=== PATIENT | male | born 1995 | race Caucasian/White ===

== ENCOUNTER 2017-11-26 01:45 | Emergency (ER) | payer SELFPAY ==
[~2017-11-26] VITALS: Ht 165.1 cm; Wt 54.0 kg
[2017-11-26] MEDS ORDERED: LORAZEPAM 2MG/ML CPJ IM PRN (02:00)
[2017-11-26] MEDS ORDERED: LEVETIRACETAM 500MG PREMIX 100 ML IV ONE (02:00)
[2017-11-26 02:22] LABS: BASOPHILS % 0.6 % (0.0-2.0); EOSINOPHILS % 2.6 % (0.0-5.0); HEMATOCRIT. 41.7 % (42.0-52.0); HEMOGLOBIN. 14.5 g/dL (14.0-18.0); LYMPHOCYTES % 39.1 % (20.0-50.0); MEAN CORPUSCULAR HEMOGLOBIN 28.7 pg (28.0-32.0); MEAN CORPUSCULAR VOLUME 82.6 fL (80.0-94.0); MONOCYTES % 8.6 % (2.0-8.0); NEUTROPHILS % 49.1 % (40.0-76.0); PLATELET 159 x1000/uL (130-400); RED BLOOD CELL COUNT 5.04 mill/uL (4.7-6.1); RED CELL DISTRIBUTION WIDTH 12.8 % (11.6-14.6)
[2017-11-26 02:25] LABS: CHLORIDE 105 mEq/L (98-107)
[2017-11-26 03:16] VITALS: BP 97/54
== END 2017-11-26 03:17 | disposition home or self-care (01) ==
LOC: ER 01:45
DX: R56.9 Unspecified convulsions (principal)
CPT/HCPCS: 36415; 80053; 85025; 96365; 96372; 99284; J1953; J2060; Z7610